=== PATIENT | male | born 1995 | race Two or more races ===

== ENCOUNTER 2022-06-02 11:54 | Emergency (ER) | payer OTHER ==
[~2022-06-02] VITALS: Ht 165.1 cm; Wt 75.7 kg
[2022-06-02] MEDS ORDERED: LOSARTAN POTASS50 MG (12:21)
== END 2022-06-02 17:31 | disposition home or self-care (01) ==
LOC: ER 11:54
DX: R30.0 Dysuria (principal); I10 Essential (primary) hypertension; E03.9 Hypothyroidism, unspecified